=== PATIENT | male | born 1995 | race Caucasian/White ===

== ENCOUNTER 2022-07-30 18:21 | Emergency (ER) | payer MEDICAID ==
[~2022-07-30] VITALS: Ht 170.2 cm; Wt 68.2 kg
[2022-07-30 18:23] VITALS: BP 96/64
== END 2022-07-30 19:38 | disposition home or self-care (01) ==
LOC: EMS 18:22
DX: B35.1 Tinea unguium (principal)
CPT/HCPCS: 99281; Z7502

== ENCOUNTER 2024-09-07 10:25 | Emergency (ER) | payer MEDICAID ==
[~2024-09-07] VITALS: Ht 167.6 cm; Wt 65.9 kg
[2024-09-07 10:32] VITALS: TEMP 98.1
[2024-09-07 13:34] VITALS: BP 104/67; PULSE 60; RESP 18; O2SAT 98
== END 2024-09-07 13:37 | disposition home or self-care (01) ==
LOC: EMS 10:25
DX: H61.23 Impacted cerumen, bilateral (principal)
CPT/HCPCS: 69209; 99282; Z7502